=== PATIENT | male | born 1995 | race Caucasian/White ===

== ENCOUNTER 2019-08-11 06:46 | Emergency (ER) | payer OTHER ==
[~2019-08-11] VITALS: Ht 170.2 cm; Wt 90.7 kg
[2019-08-11 07:10] VITALS: BP 136/83
--- NOTE | 2019-08-11 07:10 | NUR ---
TO BED # 08 AMBULATORY
--- NOTE | 2019-08-11 07:31 | NUR ---
Dr. Valencia is evaluating the patient at bedside.
[2019-08-11] MEDS ORDERED: KETOROLAC 60 MG/2 ML VIAL IM ONE (07:35)
--- NOTE | 2019-08-11 07:46 | NUR ---
3DAYS PTC PT HAVE PRODUCTIVE COUGH WITH WHITISH PHLEGM ,ACCOMPANIED BY EPISODES OF VOMITTING 2X ADAY X 3 DAYS OF RECENTLY INGESTED FOOD ,WITH DIARRHEA, DENIES FEVER . NO CONSULT DONE SELF MEDICATED WITH TYLENOL WITH SOME RELIEF .HEADACHE PAIN TMPORAL AREA 10. PT AWAKE ,ALERT, AFEBRILE ,AMBULATORY WITH STEADY GAIT. SCE ,CBS, CONGESTED TONSILS BILATERAL.DENIES PREVIOUS ILLNESSES.
[2019-08-11 08:13] VITALS: BP 130/80
--- NOTE | 2019-08-11 08:13 | NUR ---
Patient discharged with v/s stable. Written and verbal after care instructions given and explained regarding cough. Patient alert, oriented and verbalized understanding of instructions. Ambulatory with steady gait. All questions addressed prior to discharge. ID band removed. Patient advised to follow up with PMD. Rx of prednisone and motrin given. Patient educated on indication of medication including possible reaction and side effects. Opportunity to ask questions provided and answered.
== END 2019-08-11 08:13 | disposition home or self-care (01) ==
LOC: MED 06:46
DX: R05 Cough (principal); F12.10 Cannabis abuse, uncomplicated
CPT/HCPCS: 96372; 99283; J1885

== ENCOUNTER 2020-03-26 18:28 | Emergency (ER) | payer OTHER ==
[~2020-03-26] VITALS: Ht 170.2 cm; Wt 93.4 kg
[2020-03-26 18:31] VITALS: BP 146/88
--- NOTE | 2020-03-26 18:32 | NUR ---
Pt taken to [facility].
--- NOTE | 2020-03-26 18:37 | NUR ---
24/M presents to ED with complaints of right ear pain since Monday. Pt states he was seen by urgent care Monday via [facility] and was given Motrin and ABX orally. Pt states the Motrin has not helped with pain. Patient denies fever or chills. Pt denies any drainage from ear. Patient c/o 8/10 pain, dull, non radiating. Pt states he took two Motrin 800mg tabs approximately 1 hour prior to arrival.
--- NOTE | 2020-03-26 19:15 | NUR ---
REPORT RECIEVED FROM ZAKIA BAKER. TRANSFER OF CARE AT THIS TIME.
[2020-03-26 19:41] VITALS: BP 146/88
--- NOTE | 2020-03-26 19:41 | NUR ---
Patient discharged with v/s stable. Written and verbal after care instructions given and explained. Patient alert, oriented and verbalized understanding of instructions. Ambulatory with steady gait. All questions addressed prior to discharge. ID band removed. Patient advised to follow up with PMD. Rx of AUGMENTIN, OFLOXACIN OTIC SOLUTION given. Patient educated on indication of medication including possible reaction and side effects. Opportunity to ask questions provided and answered.
== END 2020-03-26 19:41 | disposition home or self-care (01) ==
LOC: MED 18:28
DX: H73.91 Unspecified disorder of tympanic membrane, right ear (principal); H66.91 Otitis media, unspecified, right ear
CPT/HCPCS: 99283